=== PATIENT | female | born 1990 | race Caucasian/White ===

== ENCOUNTER 2017-11-02 10:45 | Inpatient (IN) | payer OTHER ==
[~2017-11-02 10:45] MED LIST: IBUPROFEN600 MG PO
--- NOTE | 2017-11-02 14:53 | PR ---
[facility] [place] [facility] [address] [facility] [place], [place] [address] Signed Progress Notes IP Datetime Report Generated by CPN: 11/02/2017 14:53 PROGRESS NOTES: [id number] Impression: Slow Progression of Labor Procedures: Sterile Vag Exam Plan: Continue present management; Induction Informed Consent Obtain: Vaginal Delivery; Risks, Benefits and Alternatives Discussed VITAL SIGNS: [id number] Vital Signs: Reviewed; Within Normal Limits EXAM: [id number] Dilatation: 2.0 Effacement: 40 Station: -3 Uterine Contractions: irregular MEMBRANES: [id number] Membrane Status: Intact Comments: patient resting comfortably. Contractions are irregular. Cervix has not changed Fetus A: [id number] FHR Baseline: 150's Variability: Moderate 6-25bpm Accelerations: 15X15 Decelerations: None FHR Category: Category I Presentation: Vertex Comments on Fetus A: rare variables Fetus B: [id number] Signing Physician: Jessica Roberson MD CC: *Electronically Signed* 11/02/17 1453 JESSICA ROBERSON MD PATIENT NAME: GISEL HARTLEY PROGRESS NOTE DATE OF : 90 PHYSICIAN: JESSICA ROBERSON MD RPT #: [id number] REPORT IS CONFIDENTIAL AND NOT TO BE RELEASED WITHOUT AUTHORIZATION
--- NOTE | 2017-11-02 16:15 | PR ---
[facility] [place] [facility] [address] [facility] [place], [place] [address] Signed Progress Notes IP Datetime Report Generated by CPN: 11/02/2017 16:15 PROGRESS NOTES: [id number] Impression: Normal progression of labor Procedures: Artificial ROM; Sterile Vag Exam Plan: Continue present management; Induction Informed Consent Obtain: Vaginal Delivery; Risks, Benefits and Alternatives Discussed VITAL SIGNS: [id number] Vital Signs: Reviewed; Within Normal Limits EXAM: [id number] Dilatation: 3.0 Effacement: 70 Station: -2 Uterine Contractions: every one to three MEMBRANES: [id number] Membrane Status: Bulging Amniotic Fluid Color: Clear ROM Note: BBOW with bloody show, amniotomy with small amount of fluid Comments: BBOW with bloody show - amniotomy clear small amount of fluid Fetus A: [id number] FHR Baseline: 150s Variability: Moderate 6-25bpm Accelerations: 15X15 Decelerations: None FHR Category: Category I Presentation: Vertex Comments on Fetus A: reactive Fetus B: [id number] Signing Physician: Jessica Roberson MD CC: *Electronically Signed* 11/02/17 1615 JESSICA ROBERSON MD PATIENT NAME: GISEL HARTLEY PROGRESS NOTE DATE OF : 90 PHYSICIAN: JESSICA ROBERSON MD RPT #: [id number] REPORT IS CONFIDENTIAL AND NOT TO BE RELEASED WITHOUT AUTHORIZATION
[2017-11-02] MEDS ORDERED: ZITHROMAX250 MG (18:44)
--- NOTE | 2017-11-03 02:03 | PR ---
[facility] [address] [facility] [place], [place] [address] Signed Progress Notes IP Datetime Report Generated by CPN: 11/03/2017 02:03 PROGRESS NOTES: [id number] Impression: Slow Progression of Labor Procedures: Intrauterine Pressure Catheter; Scalp Electrode; Sterile Vag Exam Plan: Augmentation Informed Consent Obtain: Vaginal Delivery; Risks, Benefits and Alternatives Discussed VITAL SIGNS: [id number] Vital Signs: Reviewed; Within Normal Limits EXAM: [id number] Dilatation: 6.0 Effacement: 80 Station: -2 Uterine Contractions: every one to four minutes MEMBRANES: [id number] Membrane Status: Ruptured Amniotic Fluid Color: Clear ROM Note: BBOW with bloody show, amniotomy with small amount of fluid Comments: patient resting comfortably with epidural in place Fetus A: [id number] FHR Baseline: 130's Variability: Moderate 6-25bpm Accelerations: 15X15 Decelerations: Variable FHR Category: Category I Presentation: Vertex Comments on Fetus A: mild occasional variables Fetus B: [id number] Signing Physician: Jessica Roberson MD CC: *Electronically Signed* 11/03/17 0203 JESSICA ROBERSON MD PATIENT NAME: GISEL HARTLEY PROGRESS NOTE DATE OF : 90 PHYSICIAN: JESSICA ROBERSON MD RPT #: [id number] REPORT IS CONFIDENTIAL AND NOT TO BE RELEASED WITHOUT AUTHORIZATION
--- NOTE | 2017-11-03 03:27 | PR ---
[facility] [address] [facility] [place], [place] [address] Signed Progress Notes IP Datetime Report Generated by CPN: 11/03/2017 03:27 PROGRESS NOTES: [id number] Impression: Slow Progression of Labor Procedures: Sterile Vag Exam Plan: Continue present management; Anticipate Vaginal Delivery Informed Consent Obtain: Vaginal Delivery; Risks, Benefits and Alternatives Discussed VITAL SIGNS: [id number] Vital Signs: Reviewed; Within Normal Limits EXAM: [id number] Dilatation: 9.5 Effacement: 100 Station: -1 Uterine Contractions: every one to three minutes MEMBRANES: [id number] Membrane Status: Ruptured Amniotic Fluid Color: Clear ROM Note: BBOW with bloody show, amniotomy with small amount of fluid Comments: patient progressing, feeling pressure and having bloody show. Fetus A: [id number] FHR Baseline: 130's Variability: Moderate 6-25bpm Accelerations: 15X15 Decelerations: Early FHR Category: Category I Presentation: Vertex Comments on Fetus A: good variability Fetus B: [id number] Signing Physician: Jessica Roberson MD CC: *Electronically Signed* 11/03/17 0327 JESSICA ROBERSON MD PATIENT NAME: GISEL HARTLEY PROGRESS NOTE DATE OF : 90 PHYSICIAN: JESSICA ROBERSON MD RPT #: [id number] REPORT IS CONFIDENTIAL AND NOT TO BE RELEASED WITHOUT AUTHORIZATION
--- NOTE | 2017-11-04 09:53 | PR ---
[facility] [address] [facility] [place] [facility] [place], [place] [address] Signed PP Progress Notes Datetime Report Generated by CPN: 11/04/2017 09:52 SUBJECTIVE: [id number] Pain: Within normal limits Nausea/Vomiting: Denies Flatus: Yes Vital Signs: J8707600 Vital Signs: Reviewed; Within Normal Limits EXAM: [id number] Cardiovascular: Normal Respiratory: Normal Abdomen/Uterus: Normal Lochia: Normal Vulva/Perineum: Normal Breasts: Normal CVA Tenderness: Normal Extremities: Normal Incision: Not Applicable Progress: Normal IMPRESSION/PLAN/PROCEDURES: M0061700 Impression: Normal progression Plan: Discharge Procedures: None Progress Notes: patient doing well. Wanting to go home today Signing Physician: Jessica Roberson MD CC: *Electronically Signed* 11/04/17 0952 JESSICA ROBERSON MD PATIENT NAME: GISEL HARTLEY PROGRESS NOTE DATE OF : 90 PHYSICIAN: JESSICA ROBERSON MD RPT #: [id number] REPORT IS CONFIDENTIAL AND NOT TO BE RELEASED WITHOUT AUTHORIZATION
== END 2017-11-04 12:00 | disposition home or self-care (01) | DRG 775 ==
LOC: FBC 10:45
PROVIDERS: ADMIT Obstetrics & Gynecology
PROC: 10907ZC Drainage of Amniotic Fluid, Therapeutic from Products of Conception, Via Natural or Artificial Opening (ICD-10-PCS; principal; 2017-11-03)
PROC: 10E0XZZ Delivery of Products of Conception, External Approach (ICD-10-PCS; principal; 2017-11-03)
PROC: 3E033VJ Introduction of Other Hormone into Peripheral Vein, Percutaneous Approach (ICD-10-PCS; principal; 2017-11-03)
PROC: 3E0R3BZ Introduction of Anesthetic Agent into Spinal Canal, Percutaneous Approach (ICD-10-PCS; 2017-11-03)
PROC: 00HU33Z Insertion of Infusion Device into Spinal Canal, Percutaneous Approach (ICD-10-PCS; 2017-11-03)
DX: O80 Encounter for full-term uncomplicated delivery (principal); Z37.0 Single live birth; Z3A.39 39 weeks gestation of pregnancy; Z87.891 Personal history of nicotine dependence
CPT/HCPCS: 01960; 36415; 85027; 90707; J2590; J2795; J7120

== ENCOUNTER 2018-02-07 19:05 | Emergency (ER) | payer OTHER ==
[~2018-02-07] VITALS: Ht 170.2 cm; Wt 88.0 kg
[~2018-02-07 19:05] MED LIST changes: +ZITHROMAX250 MG
== END 2018-02-07 21:00 | disposition home or self-care (01) ==
LOC: ED 19:05
DX: S05.02XA Injury of conjunctiva and corneal abrasion without foreign body, left eye, initial encounter (principal); F17.200 Nicotine dependence, unspecified, uncomplicated; X58.XXXA Exposure to other specified factors, initial encounter
CPT/HCPCS: 99282

== ENCOUNTER 2019-11-23 09:39 | Inpatient (IN) | payer OTHER ==
[~2019-11-23] VITALS: Ht 172.7 cm; Wt 108.0 kg
--- NOTE | 2019-11-24 18:22 | PR ---
[facility] [address] [place], [place] [address] Signed Progress Notes IP Datetime Report Generated by CPN: 11/24/2019 18:22 PROGRESS NOTES: [id number] Impression: Reassuring heart rate Procedures: Artificial ROM Plan: Continue present management; Anticipate Vaginal Delivery Informed Consent Obtain: Vaginal Delivery VITAL SIGNS: [id number] Vital Signs: Reviewed; Within Normal Limits EXAM: Z0703186 Dilatation: 3.0 Effacement: 70 Station: -3 Uterine Contractions: Rare MEMBRANES: W8898544 ROM Note: Discussed AROM detail and verbal consent obtained. vertex well applied to cervix. AROM easily performed for moderate amount clear fluid. Mother and baby tolerating well. Comments: Pt seen and examined. Doing well. Cervix noted to be ripe on exam. AROM performed as above without difficulty. Will expectantly manage. Epidural on demand. Glucose hourly and will correct w/ insulin drip per protocol if out of range. Anticipate . All questions answered Fetus A: [id number] FHR Baseline: 130 Variability: Moderate 6-25bpm Accelerations: 15X15 Decelerations: None FHR Category: Category I Presentation: Vertex Comments on Fetus A: No evidence of metabolic acidosis Fetus B: [id number] Signing Physician: Anjali Reyna DO Copies: ~ *Electronically Signed* 11/24/19 1821 ANJALI REYNA DO PATIENT NAME: GISEL HARTLEY PROGRESS NOTE DATE OF : 90 PHYSICIAN: ANJALI REYNA DO RPT #: [id number] REPORT IS CONFIDENTIAL AND NOT TO BE RELEASED WITHOUT AUTHORIZATION
--- NOTE | 2019-11-24 21:46 | PR ---
[facility] [address] [place], [place] [address] Signed Progress Notes IP Datetime Report Generated by CPAugusto: 11/24/2019 21:46 PROGRESS NOTES: [id number] Impression: Normal progression of labor Procedures: Artificial ROM Plan: Continue present management; Anticipate Vaginal Delivery Informed Consent Obtain: Vaginal Delivery VITAL SIGNS: [id number] Vital Signs: Reviewed; Within Normal Limits EXAM: J7778663 Dilatation: 7.0 Effacement: 85 Station: -2 Uterine Contractions: q 1-3 minutes painful MEMBRANES: I4109970 ROM Note: Discussed AROM detail and verbal consent obtained. vertex well applied to cervix. AROM easily performed for moderate amount clear fluid. Mother and baby tolerating well. Comments: Pt doing well. Painful contractions but declines epidural or nitrous oxide. FHT reassuring. Glucose levels have been normal. PCN prophylaxis continues. Anticipate . All questions answered. Fetus A: [id number] FHR Baseline: 140 Variability: Moderate 6-25bpm Accelerations: None Decelerations: None FHR Category: Category I Presentation: Vertex Comments on Fetus A: No evidence of metabolic acidosis Fetus B: [id number] Signing Physician: Anjali Reyna DO Copies: ~ *Electronically Signed* 11/24/19 2144 ANJALI REYNA DO PATIENT NAME: GISEL HARTLEY PROGRESS NOTE DATE OF : 90 PHYSICIAN: ANJALI REYNA #: [id number] REPORT IS CONFIDENTIAL AND NOT TO BE RELEASED WITHOUT AUTHORIZATION
--- NOTE | 2019-11-25 12:37 | PR ---
[facility] [address] [facility] [place], [place] [address] Signed PP Progress Notes Datetime Report Generated by CPN: 11/25/2019 12:37 SUBJECTIVE: [id number] Pain: Within normal limits Nausea/Vomiting: Denies Flatus: Yes Bowel Movement: No Vital Signs: I1139254 Vital Signs: Reviewed; Within Normal Limits EXAM: [id number] Cardiovascular: Normal Respiratory: Normal Abdomen/Uterus: Normal Lochia: Normal Vulva/Perineum: Not Done Breasts: Not Done CVA Tenderness: Normal Extremities: Normal Incision: Not Applicable Progress: Normal Exam Comments: Fundus firm U-2 nontender IMPRESSION/PLAN/PROCEDURES: V7542670 Impression: Normal progression Progress Notes: PT seen and examined. Doing well. Ambulating, voiding, and tolerating full diet. Pain and lochia minimal. well. No fevers/chills or other concerns. Planning OCPs for pp contraception. Signing Physician: Anjali Reyna DO Copies: ~ *Electronically Signed* 11/25/19 1237 ANJALI REYNA DO PATIENT NAME: GISEL HARTLEY JOE PROGRESS NOTE DATE OF : 90 PHYSICIAN: ANJALI REYNA DO RPT #: [id number] REPORT IS CONFIDENTIAL AND NOT TO BE RELEASED WITHOUT AUTHORIZATION
--- NOTE | 2019-11-26 09:36 | PR ---
[facility] [address] [facility] [place], [place] [address] Signed PP Progress Notes Datetime Report Generated by CORAZON: 11/26/2019 09:36 SUBJECTIVE: [id number] Pain: Within normal limits Nausea/Vomiting: Denies Flatus: Yes Bowel Movement: No Vital Signs: Z8522650 Vital Signs: Reviewed; Within Normal Limits EXAM: [id number] Cardiovascular: Not Done Respiratory: Not Done Abdomen/Uterus: Abnormal Lochia: Normal Vulva/Perineum: Not Done Breasts: Not Done CVA Tenderness: Not Done Extremities: Normal Incision: Not Applicable Progress: Abnormal Exam Comments: Fundus firm, NT @ U-1. IMPRESSION/PLAN/PROCEDURES: M5435302 Impression: Normal progression; difficulties Plan: Discharge Procedures: None Progress Notes: Overall doing well though still issues with breast feeding. They are ready for D/C. Signing Physician: Dona Anthony MD Copies: ~ *Electronically Signed* 11/26/19 0936 DONA ANTHONY MD PATIENT NAME: GISEL HARTLEY PROGRESS NOTE DATE OF : 90 PHYSICIAN: DONA ANTHONY MD RPT #: [id number] REPORT IS CONFIDENTIAL AND NOT TO BE RELEASED WITHOUT AUTHORIZATION
== END 2019-11-26 12:25 | disposition home or self-care (01) | DRG 806 ==
LOC: FBC 11-24 08:23
PROVIDERS: ADMIT Obstetrics & Gynecology
PROC: 10E0XZZ Delivery of Products of Conception, External Approach (ICD-10-PCS; principal; 2019-11-24)
PROC: 3E0P7VZ Introduction of Hormone into Female Reproductive, Via Natural or Artificial Opening (ICD-10-PCS; 2019-11-24)
PROC: 10907ZC Drainage of Amniotic Fluid, Therapeutic from Products of Conception, Via Natural or Artificial Opening (ICD-10-PCS; 2019-11-24)
DX: O24.420 Gestational diabetes mellitus in childbirth, diet controlled (principal); O99.324 Drug use complicating childbirth; Z37.0 Single live birth; Z3A.39 39 weeks gestation of pregnancy; O99.824 Streptococcus B carrier state complicating childbirth; F12.90 Cannabis use, unspecified, uncomplicated; Z86.19 Personal history of other infectious and parasitic diseases
CPT/HCPCS: 36415; 85027; A9270; J2540; J2590

== ENCOUNTER 2021-12-07 12:37 | Emergency (ER) | payer OTHER ==
[~2021-12-07] VITALS: Ht 172.7 cm; Wt 206.3 kg
[2021-12-07] MEDS ORDERED: HYDROCODON-ACE1 EA11 PO (13:48)
== END 2021-12-07 15:48 | disposition home or self-care (01) ==
LOC: ED 12:37
DX: S62.654A Nondisplaced fracture of middle phalanx of right ring finger, initial encounter for closed fracture (principal); Z87.891 Personal history of nicotine dependence; X58.XXXA Exposure to other specified factors, initial encounter
CPT/HCPCS: 73140; 99283-25; A9270

== ENCOUNTER 2022-02-11 18:09 | Emergency (ER) | payer OTHER ==
[~2022-02-11] VITALS: Ht 172.7 cm; Wt 96.6 kg
[~2022-02-11 18:09] MED LIST changes: +HYDROCODON-ACE1 EA11 PO; +ORTHO MICRONO0.35 MG PO; +TYLENOL325 MG PO
== END 2022-02-11 19:11 | disposition home or self-care (01) ==
LOC: ED 18:09
DX: J06.9 Acute upper respiratory infection, unspecified (principal); Z87.891 Personal history of nicotine dependence
CPT/HCPCS: 99283

== ENCOUNTER 2023-02-09 00:14 | Inpatient (IN) | payer OTHER ==
[~2023-02-09] VITALS: Ht 165.1 cm; Wt 101.2 kg
[2023-02-09 00:52] VITALS: BP 111/69
--- NOTE | 2023-02-09 12:18 | PR ---
[facility] [address] [place], [place] [address] Signed Progress Notes IP Datetime Report Generated by CPN: 02/09/2023 12:17 PROGRESS NOTES: [id number] Impression: Normal Progression of Labor; Reassuring Heart Rate Procedures: Artificial ROM Plan: Continue Present Management Informed Consent Obtain: Vaginal Delivery VITAL SIGNS: G3308304 Vital Signs: Reviewed; Within Normal Limits EXAM: Z2523988 Dilatation: 3.0 Effacement: 70 Station: -3 Contractions: Rare MEMBRANES: W8198609 Comments: Pt seen and examined. Doing well. Reports contractions more regular and painful. Vertex noted to be well applied and cervix favorable. AROM performed after verbal consent. No concerns. Pt and baby tolerated well. GABRIELE Gee present for flat surfacer jewel. FETUS A: [id number] FHR Baseline: 125 Variability: Moderate 6-25bpm Accelerations: 15X15 Decelerations: None FHR Category: Category I Presentation: Vertex Comments on Fetus A: No evidence of metabolic acidosis FETUS B: [id number] Signing Physician: Anjali Reyna DO Copies: ~ *Electronically Signed* 02/09/23 3540 ANJALI REYNA (DYLAN) DO PATIENT NAME: GISEL HARTLEY PROGRESS NOTE DATE OF : 90 PHYSICIAN: ANJALI REYNA (JD) DO RPT #: [id number] REPORT IS CONFIDENTIAL AND NOT TO BE RELEASED WITHOUT AUTHORIZATION
--- NOTE | 2023-02-09 16:02 | PR ---
[facility] [address] [place], [place] [address] Signed Progress Notes IP Datetime Report Generated by CPN: 02/09/2023 16:02 PROGRESS NOTES: [id number] Impression: Normal Progression of Labor; Reassuring Heart Rate Procedures: Sterile Vag Exam Plan: Continue Present Management Informed Consent Obtain: Vaginal Delivery VITAL SIGNS: J1372515 Vital Signs: Reviewed; Within Normal Limits EXAM: G6532054 Dilatation: 5.0 Effacement: 80 Station: -2 Contractions: Rare MEMBRANES: S4838605 Comments: Pt seen and examined. Doing well. Uncomfortable w /contractions but declining epidural. No concerns. Continue expectant management. May consider augmentation at next check. FETUS A: I3417487 FHR Baseline: 125 Variability: Moderate 6-25bpm Accelerations: 15X15 Decelerations: None FHR Category: Category I Presentation: Vertex Comments on Fetus A: No evidence of metabolic acidosis FETUS B: [id number] Signing Physician: Anjali Reyna DO Copies: ~ *Electronically Signed* 02/09/23 5827 ANJALI REYNA (DYLAN) DO PATIENT NAME: ORRGISEL MORAN PROGRESS NOTE DATE OF : 90 PHYSICIAN: ANJALI REYNA (DYLAN) DO RPT #: [id number] REPORT IS CONFIDENTIAL AND NOT TO BE RELEASED WITHOUT AUTHORIZATION
--- NOTE | 2023-02-09 18:39 | PR ---
[facility] [address] [place], [place] [address] Signed Progress Notes IP Datetime Report Generated by CPN: 02/09/2023 18:39 PROGRESS NOTES: [id number] Impression: Normal Progression of Labor; Reassuring Heart Rate Other Impressions: Slow progress of labor; inadequate ctx Procedures: Sterile Vag Exam Plan: Augmentation Informed Consent Obtain: Vaginal Delivery VITAL SIGNS: [id number] Vital Signs: Reviewed; Within Normal Limits EXAM: [id number] Dilatation: 6.0 Effacement: 70 Station: -2 Contractions: Rare MEMBRANES: I1839250 Comments: Pt seen and examined. Doing well. Painful w/ contractions but declining epidural. Discussed contractions irregular and inadequate and recommended augmentation w/ pitcoin. Defer IUPC at this point. Pt understands and agrees. Low dose pit per protocol ordered. FETUS A: T4061115 FHR Baseline: 125 Variability: Moderate 6-25bpm Accelerations: 15X15 Decelerations: None FHR Category: Category I Presentation: Vertex Comments on Fetus A: No evidence of metabolic acidosis FETUS B: [id number] Signing Physician: Anjali Reyna DO Copies: ~ *Electronically Signed* 02/09/23 1051 ANJALI REYNA (DYLAN) DO PATIENT NAME: GISEL HARTLEY PROGRESS NOTE DATE OF : 90 PHYSICIAN: ANJALI REYNA (JD) DO RPT #: [id number] REPORT IS CONFIDENTIAL AND NOT TO BE RELEASED WITHOUT AUTHORIZATION
--- NOTE | 2023-02-09 20:26 | PR ---
[facility] [address] [facility] [place], [place] [address] Signed Progress Notes IP Datetime Report Generated by CPN: 02/09/2023 20:26 PROGRESS NOTES: [id number] Impression: Normal Progression of Labor; Reassuring Heart Rate Other Impressions: Slow progress of labor; inadequate ctx Procedures: Sterile Vag Exam Plan: Continue Present Management Informed Consent Obtain: Vaginal Delivery VITAL SIGNS: K5669339 Vital Signs: Reviewed; Within Normal Limits EXAM: Y9344418 Dilatation: 6.0 Effacement: 70 Station: -2 Contractions: Rare MEMBRANES: A5402213 Comments: Pt seen and examined. Contractions increasing in intensity but still somewhat spaced. Continue pitocin augmentation. Anticipate FETUS A: M7519755 FHR Baseline: 125 Variability: Moderate 6-25bpm Accelerations: 15X15 Decelerations: None FHR Category: Category I Presentation: Vertex Comments on Fetus A: No evidence of metabolic acidosis FETUS B: [id number] Signing Physician: Anjali Reyna DO Copies: ~ *Electronically Signed* 02/09/232025 ANJALI REYNA (DYLAN) DO PATIENT NAME: ORRGISEL MORAN PROGRESS NOTE DATE OF : 90 PHYSICIAN: ANJALI REYNA (DYLAN) DO RPT #: [id number] REPORT IS CONFIDENTIAL AND NOT TO BE RELEASED WITHOUT AUTHORIZATION
--- NOTE | 2023-02-09 21:35 | PR ---
[facility] [address] [place], [place] [address] Signed Progress Notes IP Datetime Report Generated by CPN: 02/09/2023 21:35 PROGRESS NOTES: [id number] Impression: Normal Progression of Labor; Reassuring Heart Rate Other Impressions: Slow progress of labor; inadequate ctx Procedures: Sterile Vag Exam Plan: Continue Present Management Informed Consent Obtain: Vaginal Delivery VITAL SIGNS: [id number] Vital Signs: Reviewed; Within Normal Limits EXAM: U3363738 Dilatation: 8.0 Effacement: 90 Station: -2 Contractions: Rare MEMBRANES: C1895071 Comments: Pt seen and examined. Doing well. Very uncomfortable w/ contractions. Discussed anticipated course of labor / delivery. Anticipate . Pt declines epidural or nitrous. FHT reassuring FETUS A: [id number] FHR Baseline: 125 Variability: Moderate 6-25bpm Accelerations: 15X15 Decelerations: None FHR Category: Category I Presentation: Vertex Comments on Fetus A: No evidence of metabolic acidosis FETUS B: [id number] Signing Physician: Anjali Reyna DO Copies: ~ *Electronically Signed* 02/09/23 8325 ANJALI REYNA (DYLAN) DO PATIENT NAME: GISEL HARTLEY PROGRESS NOTE DATE OF : 90 PHYSICIAN: ANJALI REYNA (JD) DO RPT #: [id number] REPORT IS CONFIDENTIAL AND NOT TO BE RELEASED WITHOUT AUTHORIZATION
--- NOTE | 2023-02-10 13:07 | PR ---
[facility] [place] [facility] [address] [facility] [place], [place] [address] Signed PP Progress Notes Datetime Report Generated by CPN: 02/10/2023 13:07 SUBJECTIVE: [id number] Pain: Within Normal Limits Nausea/Vomiting: Denies Bowel Movement: Yes Vital Signs: [id number] Vital Signs: Reviewed; Within Normal Limits Cardiovascular: Normal Respiratory: Normal Abdomen/Uterus: Normal Lochia: Normal Vulva/Perineum: Not Done Breasts: Not Done CVA Tenderness: Normal Extremities: Not Done Incision: Not Applicable Progress: Normal Exam Comments: Fundus firm U-2 nontender IMPRESSION/PLAN/PROCEDURES: [id number] Impression: Normal Progression Plan: Continue Present Management Progress Notes: Pt seen and examined. Some cramping and low back pain; mild. No fevers/chills. No other concerns. Anticipate d/c home tomorrow Signing Physician: Anjali Reyna DO Copies: ~ *Electronically Signed* 02/10/23 3256 ANJALI REYNA (DYLAN) DO PATIENT NAME: GISEL HARTLEY PROGRESS NOTE DATE OF : 90 PHYSICIAN: ANJALI REYNA (DYLAN) DO RPT #: [id number] REPORT IS CONFIDENTIAL AND NOT TO BE RELEASED WITHOUT AUTHORIZATION
--- NOTE | 2023-02-11 07:49 | PR ---
[facility] [address] [facility] [place], [place] [address] Signed PP Progress Notes Datetime Report Generated by CPN: 02/11/2023 07:49 SUBJECTIVE: [id number] Pain: Within Normal Limits Nausea/Vomiting: Denies Bowel Movement: Yes Vital Signs: V2918121 Vital Signs: Reviewed; Within Normal Limits Cardiovascular: Normal Respiratory: Normal Abdomen/Uterus: Normal Lochia: Normal Vulva/Perineum: Not Done Breasts: Not Done CVA Tenderness: Normal Extremities: Normal Incision: Not Applicable Progress: Normal Exam Comments: Fundus firm U-2 nontender IMPRESSION/PLAN/PROCEDURES: [id number] Impression: Normal Progression Plan: Discharge Progress Notes: Pt seen and examined. Doing well. Ambulating, voiding, and tolerating full diet. Pain and lochia minimal. well. No concerns and desires d/c home today. Unsure about plans for future fertility or contraception. Reviewed d/c instructions and medications in detail. Signing Physician: Anjali Reyna DO Copies: ~ *Electronically Signed* 02/11/23 0749 ANJALI REYNA (DYLAN) DO PATIENT NAME: GISEL HARTLEY PROGRESS NOTE DATE OF : 90 PHYSICIAN: ANJALI REYNA (DYLAN) DO RPT #: [id number] REPORT IS CONFIDENTIAL AND NOT TO BE RELEASED WITHOUT AUTHORIZATION
== END 2023-02-11 09:55 | disposition home or self-care (01) | DRG 807 ==
LOC: FBC 00:14
PROVIDERS: ADMIT Obstetrics & Gynecology; ATTEND Obstetrics & Gynecology
PROC: 10E0XZZ Delivery of Products of Conception, External Approach (ICD-10-PCS; principal; 2023-02-09)
PROC: 10907ZC Drainage of Amniotic Fluid, Therapeutic from Products of Conception, Via Natural or Artificial Opening (ICD-10-PCS; 2023-02-09)
DX: O99.214 Obesity complicating childbirth (principal); Z37.0 Single live birth; O99.893 Other specified diseases and conditions complicating puerperium; R25.2 Cramp and spasm; M54.50 Low back pain, unspecified; Z67.10 Type A blood, Rh positive; Z20.822 Contact with and (suspected) exposure to COVID-19; Z3A.39 39 weeks gestation of pregnancy; Z87.891 Personal history of nicotine dependence
CPT/HCPCS: 36415; 85027; 86850; 86900; 86901; 87502; A9270; J2590; U0003